=== PATIENT | female | born 1960 | race Caucasian/White ===

== ENCOUNTER 2016-12-06 | Outpatient (CLI) | payer MEDICARE, MEDICAID | END 2016-12-06 10:34 | disposition critical access hospital (66) | DX: R41.82 Altered mental status, unspecified (principal) | CPT/HCPCS: A0425; A0429 ==

== ENCOUNTER 2016-12-06 10:50 | Observation (INO) | payer MEDICAID, MEDICARE ==
[2016-12-06] MEDS ORDERED: AZITHROMYCIN INJ 500 MG in SODIUM CHLORIDE 0.9% 250 ML IV STA (13:30)
[2016-12-06] MEDS ORDERED: POTASSIUM CHLORIDE 20 MEQ TABLET PO STA (13:30)
[2016-12-06] MEDS ORDERED: cefTRIAXone 1 GM in SODIUM CHLORIDE 0.9% MINIBAG 100 ML IV STA (13:30)
[2016-12-06] MEDS ORDERED: POTASSIUM CHLORIDE 20 MEQ TABLET PO ONE (13:37)
[2016-12-06] MEDS ORDERED: cefTRIAXone 1 GM VIAL ONE (13:37)
[2016-12-06] MEDS ORDERED: SODIUM CHLORIDE FLUSH 0.9% 10 ML SYRINGE IVP PRN (14:21)
[2016-12-06] MEDS ORDERED: ONDANSETRON ODT 4 MG TABLET TL PRN (14:21)
[2016-12-06] MEDS ORDERED: ACETAMINOPHEN 325 MG TABLET PO PRN (14:21)
[2016-12-06] MEDS ORDERED: hydrOXYzine PAMOATE 25 MG CAPSULE PO PRN (15:48)
[2016-12-06] MEDS ORDERED: LIDOCAINE OINTMENT 5% 35.44 GM TUBE TOP PRN (15:48)
[2016-12-06] MEDS: LORazepam 2 MG/ML SYRINGE IVP PRN ×2 (16:07→20:07)
[2016-12-06] MEDS ORDERED: PERPHENAZINE 4 MG TABLET PO SCH ×2 (17:00→21:00)
[2016-12-06] MEDS ORDERED: CAPSAICIN 0.025% CREAM 60 GM TUBE TOP PRN (17:00)
[2016-12-06] MEDS ORDERED: diphenhydrAMINE 25 MG CAPSULE PO SCH (21:00)
[2016-12-06] MEDS ORDERED: clonazePAM 0.5 MG TABLET PO SCH ×2 (21:00)
[2016-12-06] MEDS ORDERED: ADDERALL 20 MG PO SCH (21:00)
[2016-12-06] MEDS: GABAPENTIN 300 MG CAPSULE PO SCH (21:20)
[2016-12-06] MEDS: SODIUM CHLORIDE FLUSH 0.9% 10 ML SYRINGE IVP SCH (21:27)
[2016-12-07] MEDS: SODIUM CHLORIDE FLUSH 0.9% 10 ML SYRINGE IVP SCH ×2 (06:51→14:08)
[2016-12-07] MEDS: GABAPENTIN 300 MG CAPSULE PO SCH ×2 (06:51→14:06)
[2016-12-07] MEDS ORDERED: PANTOPRAZOLE 40 MG TABLET PO SCH (07:00)
[2016-12-07] MEDS: PERPHENAZINE 4 MG TABLET PO SCH ×2 (08:25→14:07)
[2016-12-07] MEDS ORDERED: PRENATAL VITAMIN TABLET PO SCH (09:00)
[2016-12-07] MEDS ORDERED: cefTRIAXone 1 GM in SODIUM CHLORIDE 0.9% MINIBAG 100 ML IV SCH (09:00)
[2016-12-07] MEDS ORDERED: ZADITOR OPTH EACHEYE PRN (09:00)
[2016-12-07] MEDS ORDERED: ENOXAPARIN 40 MG/0.4 ML SYRINGE SUBQ SCH (09:00)
[2016-12-07] MEDS ORDERED: CHOLECALCIFEROL 1,000 UNIT TABLET PO SCH (09:00)
[2016-12-07] MEDS ORDERED: AZITHROMYCIN 250 MG TABLET PO SCH (09:00)
[2016-12-07] MEDS ORDERED: ADDERALL 20 MG PO SCH (09:00)
[2016-12-07] MEDS ORDERED: FOLIC ACID 1 MG TABLET PO SCH (09:00)
[2016-12-07] MEDS ORDERED: POLYETHYLENE GLYCOL 3350 17 GM PACKET PO SCH (09:00)
[2016-12-07] MEDS ORDERED: THIAMINE 100 MG TABLET PO SCH (09:00)
[2016-12-07] MEDS ORDERED: POTASSIUM CHLORIDE 20 MEQ TABLET PO SCH (10:00)
[2016-12-07] MEDS: POTASSIUM CHLOR 10 MEQ/100 ML 100 ML IV SCH ×3 (10:23→14:06)
[2016-12-07] MEDS ORDERED: IPRATROPIUM/ALBUTEROL 3 ML NEB INH PRN (15:08)
[2016-12-07] MEDS ORDERED: oxyCODONE 5 MG TABLET PO ONE (16:00)
== END 2016-12-07 17:50 | disposition home or self-care (01) ==
DX: R41.82 Altered mental status, unspecified (principal); T43.96XA Underdosing of unspecified psychotropic drug, initial encounter; Z91.128 Patient's intentional underdosing of medication regimen for other reason; R91.8 Other nonspecific abnormal finding of lung field; E87.6 Hypokalemia; E86.0 Dehydration; F20.9 Schizophrenia, unspecified; F31.9 Bipolar disorder, unspecified; F41.9 Anxiety disorder, unspecified; F10.10 Alcohol abuse, uncomplicated; F17.210 Nicotine dependence, cigarettes, uncomplicated; B19.10 Unspecified viral hepatitis B without hepatic coma; B19.20 Unspecified viral hepatitis C without hepatic coma; Z87.898 Personal history of other specified conditions
CPT/HCPCS: 36415; 70450; 71020; 80053; 80306; 80307; 81003; 82550; 83690; 84132; 84443; 85025; 85610; 96365; 96366; 96367; 96372; 96375; 96376; 99284; 99285; A9270; G0378; G0480; J1650; J2060; Q0175

== ENCOUNTER 2017-05-27 10:48 | Outpatient (CLI) | payer MEDICARE, MEDICAID | END 2017-05-27 10:49 | disposition home or self-care (01) | LOC: LAB 10:48 | PROVIDERS: ATTEND Psychiatry & Neurology Psychiatry | DX: Z79.899 Other long term (current) drug therapy (principal) | CPT/HCPCS: 80306 ==

== ENCOUNTER 2017-07-01 15:20 | Emergency (ER) | payer MEDICARE, MEDICAID ==
[2017-07-01 16:05] LABS: BASOPHILS # (AUTO) 0.2 10^3/uL (0.0-0.1); BASOPHILS % (AUTO) 2.4 %; EOSINOPHILS # (AUTO) 0.2 10^3/uL (0.0-0.7); EOSINOPHILS % (AUTO) 1.7 %; HCT - HEMATOCRIT 45.6 % (37.0-47.0); HGB - HEMOGLOBIN 15.1 g/dL (12.0-16.0); LYMPHOCYTES # (AUTO) 3.1 10^3/uL (1.5-3.5); LYMPHOCYTES % (AUTO) 31.8 %; MEAN CORPUSCULAR HEMOGLOBIN 31.8 pg (27.0-31.0); MEAN CORPUSCULAR VOLUME 96.4 fL (81.0-99.0); MEAN PLATELET VOLUME 7.8 fL (7.9-10.8); MONOCYTES # (AUTO) 0.4 10^3/uL (0.0-1.0); NEUTROPHILS # (AUTO) 5.8 10^3/uL (1.5-6.6); NEUTROPHILS % (AUTO) 60.1 %; NUCLEATED RED BLOOD CELLS AUTO 0.1 /100WBC; RED BLOOD COUNT 4.73 10^6/uL (4.20-5.40); RED CELL DISTRIBUTION WIDTH 14.6 % (12.0-15.0); UNCORRECTED WHITE BLOOD COUNT 9.7 x10^3/uL; WHITE BLOOD COUNT 9.7 x10^3/uL (4.8-10.8)
[2017-07-01 16:22] LABS: ALBUMIN/GLOBULIN RATIO 1.3 (1.0-2.2); BILIRUBIN,TOTAL 0.6 mg/dL (0.2-1.0); BUN - BLOOD UREA NITROGEN 6 mg/dL (6-20); CALCIUM 9.5 mg/dL (8.5-10.3); CARBON DIOXIDE - CO2 26 mmol/L (21-32); CHLORIDE 99 mmol/L (101-111); CREATININE 0.7 mg/dL (0.4-1.0); GFR - MDRD 87 (>89); GLUCOSE 116 mg/dL (70-100); LIPASE 52 U/L (22-51); POTASSIUM 3.9 mmol/L (3.5-5.0); SALICYLATE < 6.0 mg/dL; SODIUM 136 mmol/L (135-145); TOTAL PROTEIN 8.2 g/dL (6.7-8.2)
[2017-07-01 16:23] LABS: ACETAMINOPHEN < 10 ug/mL (10-30)
[2017-07-01] MEDS ORDERED: HYDROmorphone 1 MG/ML SYRINGE IM STA (17:38)
--- NOTE | 2017-07-01 17:39 | ED Physician Documentation ---
PD HPI MHE - Stated complaint Stated Complaint: SI - Chief complaint Chief Complaint: MHE - History obtained from History obtained from: Patient, Family - History of Present Illness Primary symptom: Suicidal ideation, Psychosis, Anxiety Timing - onset: How many weeks ago (1) Pain level max: 0 Pain level now: 0 Contributing factors: Other (cannabis, states started abilify 2 weeks ago and it is not helping) Recently seen: Not recently seen - Additional information Additional information: Patient is a 56-year-old female who presents to the emergency department stating she is having increasing auditory hallucinations at home. States the voices are telling her to kill herself. Her family states that she is frequently locking herself in her home and going underneath the house because she is concerned that people are coming after her. She sees Dr. Gilmore and [facility] and had Abilify added to her medication regimen a few weeks ago, this is not helping. Patient would like to go to an inpatient psychiatric facility for adjustment of her medications and further care. Review of Systems Ten Systems: 10 systems reviewed and negative Constitutional: denies: Fever, Chills Ears: denies: Ear pain Nose: denies: Rhinorrhea / runny nose, Congestion Throat: denies: Sore throat Cardiac: denies: Chest pain / pressure Respiratory: denies: Cough GI: denies: Abdominal Pain, Nausea, Vomiting, Diarrhea Skin: denies: Rash Musculoskeletal: denies: Neck pain, Back pain Neurologic: denies: Headache Psychiatric: reports: Suicidal, Hallucinations, Anxiety, Insomnia. 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 - Present Medications Home Medications: Ambulatory Orders Medication Instructions Recorded Confirmed Hydroxyzine Pamoate 25 - 50 mg ORAL Q4HR PRN 11/05/07/01/17 Albuterol Sulfate [Proventil Hfa 2 puffs IH Q4HR PRN 07/30/15 07/01/17 Inhaler] Gabapentin 900 mg PO TID 07/30/15 07/01/17 clonazePAM [KlonoPIN] 0.5 mg PO QPM 07/30/15 07/01/17 Capsaicin 1 applic TOP QID PRN 04/23/16 07/01/17 Ketotifen Fumarate [Zaditor] 1 drop EACHEYE BID PRN 04/23/16 07/01/17 Dextroamphetamine/Amphetamine 20 mg PO DAILY 12/06/16 07/01/17 [Adderall 20 mg Tablet] Dextroamphetamine/Amphetamine 40 mg PO QPM 12/06/16 07/01/17 [Adderall 20 mg Tablet] Perphenazine 8 mg PO DAILY@0900,1400 12/06/16 07/01/17 Perphenazine 16 mg PO QPM 12/06/16 07/01/17 diphenhydrAMINE [Benadryl] 50 mg PO DAILY PM 12/06/16 07/01/17 clonazePAM [KlonoPIN] 0.5 mg PO QPM tablet 12/07/16 07/01/17 Aripiprazole 10 mg PO DAILY 07/01/17 07/01/17 Oxycodone HCl 2 tab PO Q8HR PRN 07/01/17 07/01/17 - Allergies Allergies/Adverse Reactions: Allergies Allergy/AdvReac Type Severity Reaction Status Date / Time meperidine HCl * Allergy Nausea Verified 07/01/17 15:38 [From Demerol] morphine Allergy Itching Verified 07/01/17 15:38 promethazine HCl * Allergy Hallucinati Verified 07/01/17 15:38 [From Phenergan] ons - Social History Does the pt smoke?: Yes Smoking Status: Current every day smoker Does the pt drink ETOH?: No Does the pt have substance abuse?: No - Immunizations Immunizations are current?: Yes - POLST Patient has POLST: No PD ED PE NORMAL - Vitals Vital signs reviewed: Yes - General General: Alert and oriented X 3, No acute distress, Well developed/nourished - HEENT HEENT: PERRL, Moist mucous membranes - Neck Neck: Supple, no meningeal sign - Cardiac Cardiac: RRR, Strong equal pulses - Respiratory Respiratory: No respiratory distress, Clear bilaterally - Abdomen Abdomen: Soft, Non tender - Back Back: No spinal TTP - Derm Derm: Warm and dry, No rash - Extremities Extremities: No deformity, No tenderness to palpate - Neuro Neuro: Alert and oriented X 3 - Psych Psych: Other (Anxious, pressured speech) Results - Vitals Vitals: Vital Signs - 24 hr 07/01/17 07/01/17 07/01/17 15:34 18:42 22:29 Temperature 36.8 C 37 C Heart Rate 119 H 102 H 93 Respiratory 20 16 16 Rate Blood Pressure 136/81 H 120/85 H 117/71 O2 Saturation 97 94 95 Oxygen O2 Source Room air - Labs Labs: Laboratory Tests 07/01/17 07/01/17 07/01/17 16:00 16:00 18:00 WBC 9.7 RBC 4.73 Hgb 15.1 Hct 45.6 MCV 96.4 MCH 31.8 H MCHC 33.0 RDW 14.6 Plt Count 303 MPV 7.8 L Neut # 5.8 Lymph # 3.1 [place] # 0.4 Eos # 0.2 Baso # 0.2 H Absolute Nucleated RBC 0.01 Nucleated RBCs 0.1 Sodium 136 Potassium 3.9 Chloride 99 L Carbon Dioxide 26 Anion Gap 11.0 BUN 6 Creatinine 0.7 Estimated GFR (MDRD) 87 L Glucose 116 H Calcium 9.5 Total Bilirubin 0.6 AST 19 ALT 12 Alkaline Phosphatase 84 Total Protein 8.2 Albumin 4.6 Globulin 3.6 Albumin/Globulin Ratio 1.3 Lipase 52 H Urine Color YELLOW Urine Clarity CLEAR Urine pH 7.0 Ur Specific [place] 1.010 Urine Protein NEGATIVE Urine Glucose (UA) NEGATIVE Urine Ketones NEGATIVE Urine Occult Blood NEGATIVE Urine Nitrite NEGATIVE Urine Bilirubin NEGATIVE Urine Urobilinogen 0.2 (NORMAL) Ur Leukocyte Esterase NEGATIVE Ur Microscopic Review NOT INDICATED Urine Culture Comments NOT INDICATED Salicylates < 6.0 Urine Opiates Screen NEGATIVE Ur Oxycodone Screen NEGATIVE Urine Methadone Screen NEGATIVE Ur Propoxyphene Screen NEGATIVE Acetaminophen < 10 L Ur Barbiturates Screen NEGATIVE Ur Tricyclics Screen NEGATIVE Ur Phencyclidine Scrn NEGATIVE Ur Amphetamine Screen NEGATIVE U Methamphetamines Scrn NEGATIVE U Benzodiazepines Scrn NEGATIVE Urine Cocaine Screen NEGATIVE U Cannabinoids Screen POSITIVE H Ethyl Alcohol 15.0 PD MEDICAL DECISION MAKING - ED course Complexity details: reviewed results, re-evaluated patient, considered differential, d/w patient, d/w family, d/w pci security consultant ED course: Patient is a 56-year-old female with a history of schizoaffective disorder and bipolar with edwin. Appears to have increasing auditory hallucinations which are telling her to harm herself. Does not feel safe at home. Is voluntary and would like to go to a treatment facility. Tele-psychiatry was consulted as social work is not available, Dr. Seals saw the patient and does recommend voluntary admission to the hospital. Also recommend holding her Adderall as this may be contributing to her agitation and edwin. She is actually quite cooperative in the emergency department, did not require restraints. Feels much better after a dose of pain medication, possible that she is also going through withdrawals from her pain medication as she may have run out early. Regardless of the opiate issue, she is having hallucinations which does appear to be a worsening of her schizoaffective disorder and bipolar. Discuss the case with [facility] in [place] who is reviewing her case to see if they will accept her. Patient was signed out to the [facility] emergency department physician, Dr. Amezquita. This document was made in part using voice recognition software. While efforts are made to proofread this document, sound alike and grammatical errors may occur. Departure - Departure Clinical Impression: Auditory hallucinations, Paranoia Schizoaffective disorder Qualifiers: Schizoaffective disorder type: bipolar Qualified Code(s): F25.0 - Schizoaffective disorder, bipolar type Bipolar affective disorder Qualifiers: Active/Remission status: currently active Current bipolar episode type: mixed Current episode severity: moderate Qualified Code(s): F31.62 - Bipolar disorder , current episode mixed, moderate Condition: Stable
[2017-07-01] MEDS ORDERED: HYDROmorphone 1 MG/ML SYRINGE ONE (17:46)
[2017-07-01 18:10] LABS: BILIRUBIN,URINE NEGATIVE (NEGATIVE)
[2017-07-01 18:12] LABS: UA CHARGE (STRIP ONLY) YES; UR CULTURE IF IND NOT INDICATED
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
[2017-07-01] MEDS ORDERED: SUCRALFATE 1 GM/10 ML UDC PO STA (20:46)
[2017-07-01] MEDS ORDERED: FAMOTIDINE 20 MG TABLET PO STA (20:46)
[2017-07-01] MEDS ORDERED: oxyCODONE 5 MG TABLET PO STA (20:47)
[2017-07-01] MEDS ORDERED: oxyCODONE 5 MG TABLET ONE (20:54)
[2017-07-01] MEDS ORDERED: SUCRALFATE 1 GM/10 ML UDC ONE (20:54)
[2017-07-01] MEDS ORDERED: FAMOTIDINE 20 MG TABLET ONE (20:54)
[2017-07-02] MEDS ORDERED: GABAPENTIN 100 MG CAPSULE PO STA ×2 (09:59→21:21)
[2017-07-02] MEDS ORDERED: GABAPENTIN 300 MG CAPSULE PO STA (10:01)
[2017-07-02] MEDS ORDERED: ARIPiprazole 5 MG TABLET PO STA (10:02)
--- NOTE | 2017-07-02 10:03 | ED Physician Documentation ---
ED Addendum - Addendum Addendum: 07/02/17 10:00 The patient has slept most of the night. She is calm this morning. She is ambulatory to the bathroom. She will be given breakfast. We did give her her morning medications of gabapentin 900 mg and Abilify 10 mg and she was having some general pain and gave a hydrocodone tablet consistent with what was given last night. I held off on her Adderall at the direction of the tele-psych consult note. The psych social worker came and saw the patient and their issues regarding placement voluntarily. Reading the [facility] psych note, which says and confirms the patient is at risk of harm and outpatient treatment is not appropriate, I talked with the psych social worker who felt it most appropriate then to contact the D P for involuntary placement. However after talking with the D MHP, the patient is saying she is willing to take medications and stay in the hospital for appropriate duration of treatment (she had had issues of leaving within a day or 2 on prior admissions) the [facility] then felt the patient should be voluntary and we are back to the psych social worker finding placement.
[2017-07-02] MEDS ORDERED: GABAPENTIN 300 MG CAPSULE ONE ×2 (10:13→21:29)
[2017-07-02] MEDS ORDERED: oxyCODONE 5 MG TABLET PO STA ×2 (12:29→21:21)
[2017-07-02] MEDS ORDERED: oxyCODONE 5 MG TABLET ONE ×2 (12:34→21:28)
[2017-07-02] MEDS ORDERED: OLANZapine 10 MG VIAL IM STA (15:51)
[2017-07-02] MEDS ORDERED: WATER FOR INJECTION,STERILE 10 ML ONE (15:56)
[2017-07-02] MEDS ORDERED: OLANZapine 10 MG VIAL IM ONE (15:57)
[2017-07-02] MEDS ORDERED: PERPHENAZINE 4 MG TABLET PO STA (21:21)
[2017-07-02] MEDS ORDERED: clonazePAM 0.5 MG TABLET PO STA (21:21)
[2017-07-02] MEDS ORDERED: clonazePAM 0.5 MG TABLET PO ONE (21:29)
--- NOTE | 2017-07-03 00:58 | ED Physician Documentation ---
ED Addendum - Addendum Addendum: 07/03/17 00:57 Patient was intermittently agitated in the emergency department throughout the day, she became particularly agitated while the [facility] was here evaluating her. There are no beds available at this time, but the patient is not safe to go home and therefore cannot be medically cleared to care for herself at home. We will continue looking for placement. She is receiving her current psychiatric medications here. After her nighttime medications, she is sleeping comfortably. Will reassess in the morning
[2017-07-03] MEDS ORDERED: ARIPiprazole 5 MG TABLET PO SCH (09:00)
[2017-07-03] MEDS ORDERED: GABAPENTIN 100 MG CAPSULE PO STA (09:45)
[2017-07-03] MEDS ORDERED: oxyCODONE 5 MG TABLET PO STA ×3 (09:45→19:20)
--- NOTE | 2017-07-03 09:48 | ED Physician Documentation ---
ED Addendum - Addendum Addendum: 07/03/17 09:46 Patient reportedly did okay through the night. overnight EDMD did not have any particulars to report. This AM patient is awake and in no distress. Oriented and doing okay. DMHP will be back to see her. Reportedly tried to get her admitted yesterday involuntary, but no beds available. She was felt to still need to be detained, so kept in ED. We will give her her usual AM meds. Given breakfast. Awaiting DMHP return.
[2017-07-03] MEDS ORDERED: ARIPiprazole 5 MG TABLET PO STA (09:49)
[2017-07-03] MEDS ORDERED: GABAPENTIN 300 MG CAPSULE PO STA (09:49)
[2017-07-03] MEDS ORDERED: oxyCODONE 5 MG TABLET ONE ×3 (10:04→19:29)
[2017-07-03] MEDS ORDERED: GABAPENTIN 300 MG CAPSULE ONE (10:04)
[2017-07-03] MEDS ORDERED: NICOTINE 14 MG PATCH TOP STA (11:51)
[2017-07-03] MEDS ORDERED: NICOTINE 14 MG PATCH TOP ONE (11:56)
--- NOTE | 2017-07-03 15:39 | ED Physician Documentation ---
ED Addendum - Addendum Addendum: 07/03/17 15:37 The patient reportedly slept in was cooperative overnight. She had been deemed involuntary ID MHP yesterday but there are no beds available by report. She was kept in the department for concern of still scattered thought process and poor direction following otherwise. She was staying in her room. She was provided her normal morning medications and breakfast. The DM HPV came back to evaluate her this morning and as the patient was more cooperative and following directions and saying she would like help, it was at the time decided she would be considered voluntary. However the patient refused to talk to the social problems specialist and did become slightly verbally abusive. She was able to be calmed with directed talking. She then said that she did not think she needed help. The MHP was consulted again and came back to evaluate the patient and did feel that she was involuntary at this time after now reviewing notes from yesterday. The D P is working on placement for her.
[2017-07-03 16:57] VITALS: BP 109/63
--- NOTE | 2017-07-03 18:54 | ED Physician Documentation ---
ED Addendum - Addendum Addendum: 07/03/17 18:52 DMHP [facility] assessed patient and felt her involuntary, and was able to find accepting facility. Patient will be transferred via EMS to Psych facility in [facility]. No complications during the afternoon here.
[2017-07-03] MEDS ORDERED: MAG HYDROX/AL HYDROX/SIMETH 30 ML UDC PO STA (22:19)
[2017-07-03] MEDS ORDERED: MAG HYDROX/AL HYDROX/SIMETH 30 ML UDC ONE (22:23)
[2017-07-04] MEDS ORDERED: ARIPiprazole 5 MG TABLET PO SCH (09:00)
== END 2017-07-03 22:23 ==
LOC: ED 15:20
DX: R45.851 Suicidal ideations (principal); F25.0 Schizoaffective disorder, bipolar type; G62.9 Polyneuropathy, unspecified
CPT/HCPCS: 36415; 80053; 80306; 80307; 81003; 83690; 85025; 96372; 99285; A9270; G0480; J1170; Q0175; Q3014; 80320; 80329; 81001; 87086; 99284

== ENCOUNTER 2017-07-28 14:04 | Emergency (ER) | payer MEDICARE, MEDICAID ==
[2017-07-28 16:02] LABS: BASOPHILS # (AUTO) 0.1 10^3/uL (0.0-0.1); BASOPHILS % (AUTO) 0.8 %; EOSINOPHILS # (AUTO) 0.3 10^3/uL (0.0-0.7); EOSINOPHILS % (AUTO) 3.5 %; HCT - HEMATOCRIT 41.7 % (37.0-47.0); HGB - HEMOGLOBIN 13.7 g/dL (12.0-16.0); LYMPHOCYTES # (AUTO) 2.5 10^3/uL (1.5-3.5); LYMPHOCYTES % (AUTO) 32.7 %; MEAN CORPUSCULAR HEMOGLOBIN 31.9 pg (27.0-31.0); MEAN CORPUSCULAR HGB CONC 32.8 g/dL (32.0-36.0); MEAN PLATELET VOLUME 7.8 fL (7.9-10.8); MONOCYTES # (AUTO) 0.3 10^3/uL (0.0-1.0); MONOCYTES % (AUTO) 4.2 %; NEUTROPHILS # (AUTO) 4.5 10^3/uL (1.5-6.6); NEUTROPHILS % (AUTO) 58.8 %; RED BLOOD COUNT 4.29 10^6/uL (4.20-5.40); RED CELL DISTRIBUTION WIDTH 14.7 % (12.0-15.0); UNCORRECTED WHITE BLOOD COUNT 7.7 x10^3/uL; WHITE BLOOD COUNT 7.7 x10^3/uL (4.8-10.8)
[2017-07-28 16:27] LABS: ALBUMIN/GLOBULIN RATIO 1.3 (1.0-2.2); BILIRUBIN,TOTAL 0.3 mg/dL (0.2-1.0); BUN - BLOOD UREA NITROGEN 8 mg/dL (6-20); CALCIUM 9.5 mg/dL (8.5-10.3); CARBON DIOXIDE - CO2 29 mmol/L (21-32); CHLORIDE 102 mmol/L (101-111); CREATININE 0.8 mg/dL (0.4-1.0); GFR - MDRD 74 (>89); GLUCOSE 99 mg/dL (70-100); LIPASE 42 U/L (22-51); MAGNESIUM 2.2 mg/dL (1.7-2.8); POTASSIUM 4.3 mmol/L (3.5-5.0); SODIUM 139 mmol/L (135-145); TOTAL PROTEIN 7.5 g/dL (6.7-8.2)
[2017-07-28 17:19] LABS: BILIRUBIN,URINE NEGATIVE (NEGATIVE)
[2017-07-28 17:20] LABS: UA CHARGE (STRIP ONLY) YES; UR CULTURE IF IND NOT INDICATED
[2017-07-28 17:43] LABS: SALICYLATE < 6.0 mg/dL
[2017-07-28 17:47] LABS: ACETAMINOPHEN < 10 ug/mL (10-30)
[2017-07-28] MEDS ORDERED: diazePAM 5 MG TABLET PO STA (19:01)
[2017-07-28] MEDS ORDERED: diazePAM 5 MG TABLET PO ONE (19:20)
--- NOTE | 2017-07-28 19:27 | ED Physician Documentation ---
History of Present Illness - Stated complaint Stated Complaint: MHE - Chief complaint Chief Complaint: MHE - Additonal information Additional information: Patient is a 56-year-old female with a history of schizoaffective disorder. She also has Charcot Fifi tooth of the exremity. She is here with a complaint of feeling jittery, emotional, and suicidal. She does not have a plan or she is tempted anything. She lives with her mother and she was told to go to get medical help and that her mother believes she needs her medications balanced better. This patient get some of her medications from a local psychiatrist Dr. Gilmore. This patient is on several controlled medications and is complaining of headache and asking for pain medications here in emergency department. 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 - Present Medications Home Medications: Ambulatory Orders Medication Instructions Recorded Confirmed Hydroxyzine Pamoate 25 - 50 mg ORAL Q4HR PRN 11/05/14 07/28/17 Albuterol Sulfate [Proventil Hfa 2 puffs IH Q4HR PRN 07/30/15 07/28/17 Inhaler] Gabapentin 900 mg PO TID 07/30/15 07/28/17 Capsaicin 1 applic TOP QID PRN 04/23/16 07/28/17 Dextroamphetamine/Amphetamine 20 mg PO BID 12/06/16 07/28/17 [Adderall 20 mg Tablet] Perphenazine 16 mg PO QPM 12/06/16 07/28/17 clonazePAM [KlonoPIN] 0.5 mg PO QPM tablet 12/07/16 07/28/17 Aripiprazole 10 mg PO DAILY 07/01/17 07/28/17 Oxycodone HCl 2 tab PO Q8HR PRN 07/01/17 07/28/17 Benztropine [Cogentin] 2 mg PO QPM 07/28/17 07/28/17 - Allergies Allergies/Adverse Reactions: Allergies Allergy/AdvReac Type Severity Reaction Status Date / Time meperidine HCl * Allergy Nausea Verified 07/01/17 15:38 [From Demerol] morphine Allergy Itching Verified 07/01/17 15:38 promethazine HCl * Allergy Hallucinati Verified 07/01/17 15:38 [From Phenergan] ons - Social History Does the pt smoke?: Yes Smoking Status: Current every day smoker Does the pt drink ETOH?: No Does the pt have substance abuse?: No - Immunizations Immunizations are current?: Yes - POLST Patient has POLST: No Results - Vitals Vitals: Vital Signs - 24 hr 07/28/17 07/28/17 07/28/17 14:42 18:40 21:51 Temperature 36.4 C L Heart Rate 119 H 104 H 101 H Respiratory 20 16 Rate Blood Pressure 112/80 137/88 H 138/86 H O2 Saturation 99 98 95 Oxygen O2 Source Room air - Labs Labs: Laboratory Tests 07/28/17 07/28/17 07/28/17 15:54 15:54 15:54 WBC 7.7 RBC 4.29 Hgb 13.7 Hct 41.7 MCV 97.0 MCH 31.9 H MCHC 32.8 RDW 14.7 Plt Count 290 MPV 7.8 L Neut # 4.5 Lymph # 2.5 [place] # 0.3 Eos # 0.3 Baso # 0.1 Absolute Nucleated RBC 0.00 Nucleated RBCs 0.0 Sodium 139 Potassium 4.3 Chloride 102 Carbon Dioxide 29 Anion Gap 8.0 BUN 8 Creatinine 0.8 Estimated GFR (MDRD) 74 L Glucose 99 Calcium 9.5 Magnesium 2.2 Total Bilirubin 0.3 AST 18 ALT 12 Alkaline Phosphatase 79 Total Protein 7.5 Albumin 4.3 Globulin 3.2 Albumin/Globulin Ratio 1.3 Lipase 42 TSH 0.84 Urine Color Urine Clarity Urine pH Ur Specific [place] Urine Protein Urine Glucose (UA) Urine Ketones Urine Occult Blood Urine Nitrite Urine Bilirubin Urine Urobilinogen Ur Leukocyte Esterase Ur Microscopic Review Urine Culture Comments Salicylates Urine Opiates Screen Ur Oxycodone Screen Urine Methadone Screen Ur Propoxyphene Screen Acetaminophen Ur Barbiturates Screen Ur Tricyclics Screen Ur Phencyclidine Scrn Ur Amphetamine Screen U Methamphetamines Scrn U Benzodiazepines Scrn Urine Cocaine Screen U Cannabinoids Screen Ethyl Alcohol < 5.0 07/28/17 07/28/17 17:05 17:14 WBC RBC Hgb Hct MCV MCH MCHC RDW Plt Count MPV Neut # Lymph # [place] # Eos # Baso # Absolute Nucleated RBC Nucleated RBCs Sodium Potassium Chloride Carbon Dioxide Anion Gap BUN Creatinine Estimated GFR (MDRD) Glucose Calcium Magnesium Total Bilirubin AST ALT Alkaline Phosphatase Total Protein Albumin Globulin Albumin/Globulin Ratio Lipase TSH Urine Color YELLOW Urine Clarity CLEAR Urine pH 6.0 Ur Specific [place] 1.010 Urine Protein NEGATIVE Urine Glucose (UA) NEGATIVE Urine Ketones NEGATIVE Urine Occult Blood NEGATIVE Urine Nitrite NEGATIVE Urine Bilirubin NEGATIVE Urine Urobilinogen 0.2 (NORMAL) Ur Leukocyte Esterase NEGATIVE Ur Microscopic Review NOT INDICATED Urine Culture Comments NOT INDICATED Salicylates < 6.0 Urine Opiates Screen POSITIVE H Ur Oxycodone Screen NEGATIVE Urine Methadone Screen NEGATIVE Ur Propoxyphene Screen NEGATIVE Acetaminophen < 10 L Ur Barbiturates Screen NEGATIVE Ur Tricyclics Screen NEGATIVE Ur Phencyclidine Scrn NEGATIVE Ur Amphetamine Screen NEGATIVE U Methamphetamines Scrn NEGATIVE U Benzodiazepines Scrn NEGATIVE Urine Cocaine Screen NEGATIVE U Cannabinoids Screen NEGATIVE Ethyl Alcohol PD MEDICAL DECISION MAKING - ED course Complexity details: reviewed old records, reviewed results, re-evaluated patient , considered differential ED course: Patient is a middle-aged woman with history of schizoaffective disorder on multiple medications. She was just hospitalized for suicidality, acute out of hospital went home and in was told by family members that she is unfit to needs her medications adjusted. The patient says that she still feels suicidal she is complaining of a headache and right leg pain. She otherwise look looks well on examination but is very agitated. We did do routine blood work around her and it is unremarkable. She is given 5 mg of Valium which calmed her down a little bit and she is given her nighttime psychiatric medications. I was reticent to give her lots of her normal medications because I am not sure that these are good for and if she truly needs her medications reviewed been I am concerned about her constant use of opiates, benzodiazepines and amphetamines. She has been given her nighttime dose of antipsychotic in the form of Haldol because we do not carry Trilafon here. At this point in time she is medically cleared for psychiatry and is sleeping quietly. Disposition pending psychiatric evaluation in the morning by social work and MHP. Clinical impression: 1. Schizoaffective disorder 2. Alleged suicidality 3. Suspect polypharmacy
[2017-07-28] MEDS ORDERED: GABAPENTIN 100 MG CAPSULE PO STA (20:19)
[2017-07-28] MEDS ORDERED: NICOTINE 21 MG PATCH TOP STA (20:19)
[2017-07-28] MEDS ORDERED: NICOTINE 21 MG PATCH TOP ONE (20:33)
[2017-07-28] MEDS ORDERED: GABAPENTIN 300 MG CAPSULE ONE (20:33)
[2017-07-28] MEDS ORDERED: HALOPERIDOL 5 MG/ML VIAL IM STA (20:37)
[2017-07-28] MEDS ORDERED: BENZTROPINE 2 MG TABLET PO SCH (21:00)
[2017-07-28] MEDS ORDERED: BENZTROPINE 2 MG/2 ML AMP IM STA (21:10)
[2017-07-28] MEDS: PERPHENAZINE 4 MG TABLET PO SCH (21:12)
[2017-07-28] MEDS ORDERED: HALOPERIDOL 5 MG/ML VIAL ONE (21:43)
[2017-07-28] MEDS ORDERED: BENZTROPINE 2 MG/2 ML VIAL ONE (21:43)
--- NOTE | 2017-07-28 22:12 | XRAY Preliminary Report ---
Exam: XR Ankle 3 View RT IMPRESSION: Chronic postoperative and posttraumatic changes in the distal right tibia and fibula. No acute fracture or malalignment seen. RADIA SITE ID: [id number]
--- NOTE | 2017-07-28 22:32 | XRAY Report ---
EXAM: RIGHT ANKLE RADIOGRAPHY EXAM DATE: 07/28/2017 09:36 PM. CLINICAL HISTORY: Pain and swelling right ankle, fall. COMPARISON: 08/13/2016. TECHNIQUE: 3 views. FINDINGS: Bones: Chronic postoperative and posttraumatic changes in the distal right tibia and fibula. No acute fracture or malalignment seen. Joints: No malalignment. Mild degenerative changes about the ankle. Soft Tissues: Normal. No soft tissue swelling. IMPRESSION: Chronic postoperative and posttraumatic changes in the distal right tibia and fibula. No acute fracture or malalignment seen. [facility] Referring Provider Line: [phone] SITE ID: [id number]
[2017-07-29] MEDS: PERPHENAZINE 4 MG TABLET PO SCH ×2 (08:19→15:31)
[2017-07-29] MEDS ORDERED: oxyCODONE 5 MG TABLET PO STA (08:30)
[2017-07-29] MEDS ORDERED: GABAPENTIN 100 MG CAPSULE PO STA (08:31)
[2017-07-29] MEDS ORDERED: GABAPENTIN 300 MG CAPSULE ONE (08:49)
[2017-07-29] MEDS ORDERED: oxyCODONE 5 MG TABLET ONE (08:49)
[2017-07-29] MEDS ORDERED: ARIPiprazole 5 MG TABLET PO SCH (09:00)
--- NOTE | 2017-07-29 12:32 | ED Physician Documentation ---
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: Tubal ligation - Present Medications Home Medications: Ambulatory Orders Medication Instructions Recorded Confirmed Hydroxyzine Pamoate 25 - 50 mg ORAL Q4HR PRN 11/05/14 07/28/17 Albuterol Sulfate [Proventil Hfa 2 puffs IH Q4HR PRN 07/30/15 07/28/17 Inhaler] Gabapentin 900 mg PO TID 07/30/15 07/28/17 Capsaicin 1 applic TOP QID PRN 04/23/16 07/28/17 Dextroamphetamine/Amphetamine 20 mg PO BID 12/06/16 07/28/17 [Adderall 20 mg Tablet] Perphenazine 16 mg PO QPM 12/06/16 07/28/17 clonazePAM [KlonoPIN] 0.5 mg PO QPM tablet 12/07/16 07/28/17 Aripiprazole 10 mg PO DAILY 07/01/17 07/28/17 Oxycodone HCl 2 tab PO Q8HR PRN 07/01/17 07/28/17 Benztropine [Cogentin] 2 mg PO QPM 07/28/17 07/28/17 - Allergies Allergies/Adverse Reactions: Allergies Allergy/AdvReac Type Severity Reaction Status Date / Time meperidine HCl * Allergy Nausea Verified 07/01/17 15:38 [From Demerol] morphine Allergy Itching Verified 07/01/17 15:38 promethazine HCl * Allergy Hallucinati Verified 07/01/17 15:38 [From Phenergan] ons - Social History Does the pt smoke?: Yes Smoking Status: Current every day smoker Does the pt drink ETOH?: No Does the pt have substance abuse?: No - Immunizations Immunizations are current?: Yes - POLST Patient has POLST: No Results - Vitals Vitals: Oxygen O2 Source Room air - Labs Labs: Laboratory Tests 07/28/17 07/28/17 07/28/17 15:54 15:54 15:54 WBC 7.7 RBC 4.29 Hgb 13.7 Hct 41.7 MCV 97.0 MCH 31.9 H MCHC 32.8 RDW 14.7 Plt Count 290 MPV 7.8 L Neut # 4.5 Lymph # 2.5 [place] # 0.3 Eos # 0.3 Baso # 0.1 Absolute Nucleated RBC 0.00 Nucleated RBCs 0.0 Sodium 139 Potassium 4.3 Chloride 102 Carbon Dioxide 29 Anion Gap 8.0 BUN 8 Creatinine 0.8 Estimated GFR (MDRD) 74 L Glucose 99 Calcium 9.5 Magnesium 2.2 Total Bilirubin 0.3 AST 18 ALT 12 Alkaline Phosphatase 79 Total Protein 7.5 Albumin 4.3 Globulin 3.2 Albumin/Globulin Ratio 1.3 Lipase 42 TSH 0.84 Urine Color Urine Clarity Urine pH Ur Specific [place] Urine Protein Urine Glucose (UA) Urine Ketones Urine Occult Blood Urine Nitrite Urine Bilirubin Urine Urobilinogen Ur Leukocyte Esterase Ur Microscopic Review Urine Culture Comments Salicylates Urine Opiates Screen Ur Oxycodone Screen Urine Methadone Screen Ur Propoxyphene Screen Acetaminophen Ur Barbiturates Screen Ur Tricyclics Screen Ur Phencyclidine Scrn Ur Amphetamine Screen U Methamphetamines Scrn U Benzodiazepines Scrn Urine Cocaine Screen U Cannabinoids Screen Ethyl Alcohol < 5.0 07/28/17 07/28/17 17:05 17:14 WBC RBC Hgb Hct MCV MCH MCHC RDW Plt Count MPV Neut # Lymph # [place] # Eos # Baso # Absolute Nucleated RBC Nucleated RBCs Sodium Potassium Chloride Carbon Dioxide Anion Gap BUN Creatinine Estimated GFR (MDRD) Glucose Calcium Magnesium Total Bilirubin AST ALT Alkaline Phosphatase Total Protein Albumin Globulin Albumin/Globulin Ratio Lipase TSH Urine Color YELLOW Urine Clarity CLEAR Urine pH 6.0 Ur Specific [place] 1.010 Urine Protein NEGATIVE Urine Glucose (UA) NEGATIVE Urine Ketones NEGATIVE Urine Occult Blood NEGATIVE Urine Nitrite NEGATIVE Urine Bilirubin NEGATIVE Urine Urobilinogen 0.2 (NORMAL) Ur Leukocyte Esterase NEGATIVE Ur Microscopic Review NOT INDICATED Urine Culture Comments NOT INDICATED Salicylates < 6.0 Urine Opiates Screen POSITIVE H Ur Oxycodone Screen NEGATIVE Urine Methadone Screen NEGATIVE Ur Propoxyphene Screen NEGATIVE Acetaminophen < 10 L Ur Barbiturates Screen NEGATIVE Ur Tricyclics Screen NEGATIVE Ur Phencyclidine Scrn NEGATIVE Ur Amphetamine Screen NEGATIVE U Methamphetamines Scrn NEGATIVE U Benzodiazepines Scrn NEGATIVE Urine Cocaine Screen NEGATIVE U Cannabinoids Screen NEGATIVE Ethyl Alcohol PD MEDICAL DECISION MAKING - ED course Complexity details: re-evaluated patient, d/w patient ED course: The patient's care was turned over to me at change of shift pending transport by BLS ambulance to psychiatric care facility. She remained cooperative throughout the remaining time in the emergency department, although she repeatedly requested more pain medication. She routinely takes oxycodone and gabapentin. Treatment in the emergency department included oxycodone 5 mg orally, gabapentin 300 mg orally, and ibuprofen 800 mg orally. She was also given her normal daily dose of Abilify. She was subsequently transported by BLS ambulance to [facility]. COBRA form completed. Departure - Departure Disposition: 65 Psych Hosp/Unit DC/Xfer Clinical Impression: Schizoaffective disorder, depressive type, Polysubstance abuse Condition: Stable Discharge Date/Time: 07/29/17 16:50
[2017-07-29] MEDS ORDERED: IBUPROFEN 800 MG TABLET PO STA (15:10)
[2017-07-29] MEDS ORDERED: PERPHENAZINE 4 MG TABLET PO ONE (15:32)
[2017-07-29] MEDS ORDERED: IBUPROFEN 800 MG TABLET PO ONE (15:33)
[2017-07-29 16:39] VITALS: BP 123/75
== END 2017-07-29 16:50 ==
LOC: ED 14:04
DX: F25.1 Schizoaffective disorder, depressive type (principal); R45.851 Suicidal ideations; R51 Headache; F11.10 Opioid abuse, uncomplicated; F13.10 Sedative, hypnotic or anxiolytic abuse, uncomplicated; F15.10 Other stimulant abuse, uncomplicated; M79.604 Pain in right leg; G60.0 Hereditary motor and sensory neuropathy; I73.9 Peripheral vascular disease, unspecified; F17.200 Nicotine dependence, unspecified, uncomplicated
CPT/HCPCS: 36415; 73610; 80053; 80306; 80307; 81003; 83690; 83735; 84443; 85025; 96372; 99284; A9270; G0480; J0515; Q0175; 80320; 80329; 81001; 87086

== ENCOUNTER 2017-09-13 13:40 | Emergency (ER) | payer MEDICARE, MEDICAID ==
[2017-09-13] MEDS ORDERED: OLANZapine 10 MG VIAL IM STA (14:17)
[2017-09-13] MEDS ORDERED: KETOROLAC 60 MG/2 ML VIAL IM STA (14:17)
--- NOTE | 2017-09-13 14:24 | ED Physician Documentation ---
PD HPI MHE - Stated complaint Stated Complaint: MHE - Chief complaint Chief Complaint: MHE - History obtained from History obtained from: Patient, EMS - History of Present Illness Primary symptom: Other (56-year-old woman with schizoaffective disorder presents by ambulance. Per her, her main complaints are that she is out of her medications and she has been unable to get a hold of [facility] to refill them. Per EMS and nursing report she has been delusional, worried about stalkers. She took her sister's gun without specific plan.) Review of Systems Ten Systems: 10 systems reviewed and negative Constitutional: denies: Fever, Chills GI: denies: Abdominal Pain, Nausea, Vomiting Musculoskeletal: reports: Other (Chronic right leg pain from prior energy injury for which she requests a shot of Dilaudid) Psychiatric: denies: Suicidal, Homicidal PD PAST MEDICAL HISTORY - Past Medical History Cardiovascular: Peripheral Vascular Disease, Atrial fibrillation Respiratory: Asthma, COPD Neuro: Peripheral neuropathy, Tremors, Other Endocrine/Autoimmune: None GI: Chronic diarrhea : None HEENT: Chronic hearing loss Psych: Depression, Anxiety, Bipolar disorder, Schizophrenia, Panic attacks Musculoskeletal: Osteoarthritis, Fibromyalgia Derm: Other - Past Surgical History Past Surgical History: Yes Ortho: Arthroscopic surgery /PCA: Tubal ligation - Present Medications Home Medications: Ambulatory Orders Medication Instructions Recorded Confirmed Hydroxyzine Pamoate 25 - 50 mg ORAL Q4HR PRN 11/05/07/28/17 Albuterol Sulfate [Proventil Hfa 2 puffs IH Q4HR PRN 07/30/15 07/28/17 Inhaler] Gabapentin 900 mg PO TID 07/30/15 07/28/17 Capsaicin 1 applic TOP QID PRN 04/23/16 07/28/17 Dextroamphetamine/Amphetamine 20 mg PO BID 12/06/16 07/28/17 [Adderall 20 mg Tablet] Perphenazine 16 mg PO QPM 12/06/16 07/28/17 clonazePAM [KlonoPIN] 0.5 mg PO QPM tablet 12/07/16 07/28/17 Aripiprazole 10 mg PO DAILY 07/01/17 07/28/17 Oxycodone HCl 2 tab PO Q8HR PRN 07/01/17 07/28/17 Benztropine [Cogentin] 2 mg PO QPM 07/28/17 07/28/17 - Allergies Allergies/Adverse Reactions: Allergies Allergy/AdvReac Type Severity Reaction Status Date / Time meperidine HCl * Allergy Nausea Verified 09/13/17 13:55 [From Demerol] morphine Allergy Itching Verified 09/13/17 13:55 promethazine HCl * Allergy Hallucinati Verified 09/13/17 13:55 [From Phenergan] ons - Social History Does the pt smoke?: Yes Smoking Status: Current every day smoker Does the pt drink ETOH?: Yes Does the pt have substance abuse?: No - Family History Family history: reports: Non contributory - Immunizations Immunizations are current?: Yes - POLST Patient has POLST: No PD ED PE NORMAL - Vitals Vital signs reviewed: Yes - General General: Alert and oriented X 3, Other (Slightly agitated but cooperative and redirectable) - HEENT HEENT: PERRL, EOMI - Neck Neck: Supple, no meningeal sign, No bony TTP - Cardiac Cardiac: RRR, No murmur - Respiratory Respiratory: No respiratory distress, Clear bilaterally - Abdomen Abdomen: Normal bowel sounds, Soft, Non tender - Extremities Extremities: Other (Right leg with full range of motion, slight deformity to the right ankle from prior Charcot joints.) - Neuro Neuro: Alert and oriented X 3, Normal speech Results - Vitals Vitals: Vital Signs - 24 hr 09/13/17 09/13/17 09/13/17 13:44 18:46 20:12 Temperature 36.9 C 36.9 C Heart Rate 112 H 91 97 Respiratory 15 20 20 Rate Blood Pressure 127/80 131/87 H 121/83 H O2 Saturation 96 98 96 Oxygen O2 Source Room air - Labs Labs: Laboratory Tests 09/13/17 09/13/17 09/13/17 17:22 17:22 18:38 WBC 9.1 RBC 4.22 Hgb 13.5 Hct 41.3 MCV 98.0 MCH 31.9 H MCHC 32.6 RDW 14.7 Plt Count 260 MPV 7.6 L Neut # 5.8 Lymph # 2.4 [place] # 0.6 Eos # 0.2 Baso # 0.1 Absolute Nucleated RBC 0.01 Nucleated RBC % 0.1 Sodium 129 L Potassium 3.7 Chloride 93 L Carbon Dioxide 27 Anion Gap 9.0 BUN 11 Creatinine 0.8 Estimated GFR (MDRD) 74 L Glucose 124 H Calcium 9.4 Total Bilirubin 0.6 AST 21 ALT 15 Alkaline Phosphatase 86 Total Protein 8.0 Albumin 4.7 Globulin 3.3 Albumin/Globulin Ratio 1.4 Lipase 35 Urine Color YELLOW Urine Clarity CLEAR Urine pH 6.0 Ur Specific [place] <=1.005 Urine Protein NEGATIVE Urine Glucose (UA) NEGATIVE Urine Ketones NEGATIVE Urine Occult Blood NEGATIVE Urine Nitrite NEGATIVE Urine Bilirubin NEGATIVE Urine Urobilinogen 0.2 (NORMAL) Ur Leukocyte Esterase NEGATIVE Ur Microscopic Review NOT INDICATED Urine Culture Comments NOT INDICATED Urine Opiates Screen NEGATIVE Ur Oxycodone Screen POSITIVE H Urine Methadone Screen NEGATIVE Ur Propoxyphene Screen NEGATIVE Ur Barbiturates Screen NEGATIVE Ur Tricyclics Screen NEGATIVE Ur Phencyclidine Scrn NEGATIVE Ur Amphetamine Screen NEGATIVE U Methamphetamines Scrn NEGATIVE U Benzodiazepines Scrn NEGATIVE Urine Cocaine Screen NEGATIVE U Cannabinoids Screen NEGATIVE Ethyl Alcohol < 5.0 PD MEDICAL DECISION MAKING - ED course ED course: 56-year-old woman who is out of her medications and presents with psychosis although is cooperative and redirectable here. Per my discussion with the director social service, she is on a least restrictive order and as such the P will need to be called since she ended up in the emergency department. Initially the patient refused blood work and urinalysis, but I think she was talked into it by me. It did take a while to get this lab work done [facility]. She was seen and evaluated by the CDP who felt that she was at her baseline and recommended discharge without any additional medications to follow-up for intensive outpatient treatment tomorrow with [facility]. However, after further discussion with the MHP the patient wanted to seek hospitalization and the P is looking for a bed. Departure - Departure Disposition: 02 Transfer Acute Care Hosp Clinical Impression: Schizoaffective disorder Qualifiers: Schizoaffective disorder type: unspecified Qualified Code(s): F25.9 - Schizoaffective disorder, unspecified Condition: Stable Record reviewed to determine appropriate education?: Yes Instructions: ED Schizo Affective Disorder Comments: Follow-up with [facility] tomorrow as recommended by the mental health professional for further medication management. Your blood pressure was elevated today on check into the emergency department. This does not mean that you have hypertension, it is a common phenomenon to come to the emergency department and have elevated blood pressure. I recommend that you see your primary care physician within the week to have it rechecked when you are feeling better.
[2017-09-13] MEDS ORDERED: KETOROLAC 30 MG/ML VIAL ONE (14:29)
[2017-09-13] MEDS ORDERED: OLANZapine 10 MG VIAL IM ONE (14:30)
[2017-09-13] MEDS ORDERED: SODIUM CHLORIDE 0.9% 10 ML ONE (14:33)
[2017-09-13] MEDS ORDERED: oxyCODONE ER 10 MG TABLET PO STA (15:50)
[2017-09-13] MEDS ORDERED: oxyCODONE 5 MG TABLET PO STA (15:51)
[2017-09-13] MEDS ORDERED: oxyCODONE 5 MG TABLET ONE (16:08)
[2017-09-13] MEDS ORDERED: oxyCODONE ER 10 MG TABLET PO ONE (16:25)
[2017-09-13 17:36] LABS: BASOPHILS # (AUTO) 0.1 10^3/uL (0.0-0.1); BASOPHILS % (AUTO) 1.4 %; EOSINOPHILS # (AUTO) 0.2 10^3/uL (0.0-0.7); EOSINOPHILS % (AUTO) 1.7 %; HCT - HEMATOCRIT 41.3 % (37.0-47.0); HGB - HEMOGLOBIN 13.5 g/dL (12.0-16.0); LYMPHOCYTES # (AUTO) 2.4 10^3/uL (1.5-3.5); LYMPHOCYTES % (AUTO) 26.9 %; MEAN CORPUSCULAR HEMOGLOBIN 31.9 pg (27.0-31.0); MEAN CORPUSCULAR HGB CONC 32.6 g/dL (32.0-36.0); MEAN PLATELET VOLUME 7.6 fL (7.9-10.8); MONOCYTES # (AUTO) 0.6 10^3/uL (0.0-1.0); MONOCYTES % (AUTO) 6.3 %; NEUTROPHILS # (AUTO) 5.8 10^3/uL (1.5-6.6); NEUTROPHILS % (AUTO) 63.7 %; NUCLEATED RED BLOOD CELLS AUTO 0.1 /100WBC; RED BLOOD COUNT 4.22 10^6/uL (4.20-5.40); RED CELL DISTRIBUTION WIDTH 14.7 % (12.0-15.0); UNCORRECTED WHITE BLOOD COUNT 9.1 x10^3/uL; WHITE BLOOD COUNT 9.1 x10^3/uL (4.8-10.8)
[2017-09-13 17:40] LABS: ALBUMIN/GLOBULIN RATIO 1.4 (1.0-2.2); BILIRUBIN,TOTAL 0.6 mg/dL (0.2-1.0); BUN - BLOOD UREA NITROGEN 11 mg/dL (6-20); CALCIUM 9.4 mg/dL (8.5-10.3); CARBON DIOXIDE - CO2 27 mmol/L (21-32); CHLORIDE 93 mmol/L (101-111); CREATININE 0.8 mg/dL (0.4-1.0); GFR - MDRD 74 (>89); GLUCOSE 124 mg/dL (70-100); LIPASE 35 U/L (22-51); POTASSIUM 3.7 mmol/L (3.5-5.0); SODIUM 129 mmol/L (135-145)
[2017-09-13 18:53] LABS: BILIRUBIN,URINE NEGATIVE (NEGATIVE)
[2017-09-13 19:00] LABS: UA CHARGE (STRIP ONLY) YES; UR CULTURE IF IND NOT INDICATED
[2017-09-13] MEDS ORDERED: clonazePAM 0.5 MG TABLET PO STA (22:15)
[2017-09-13] MEDS ORDERED: clonazePAM 0.5 MG TABLET PO ONE (22:25)
[2017-09-14] MEDS ORDERED: LORazepam 2 MG/ML SYRINGE IM STA (00:58)
[2017-09-14] MEDS ORDERED: LORazepam 2 MG/ML SYRINGE ONE (01:07)
[2017-09-14] MEDS ORDERED: oxyCODONE ER 10 MG TABLET PO SCH ×2 (06:00→21:00)
[2017-09-14] MEDS ORDERED: oxyCODONE ER 10 MG TABLET PO ONE (06:07)
[2017-09-14 06:22] VITALS: BP 133/88
== END 2017-09-14 08:19 | disposition short-term general hospital (02) ==
LOC: EDUNIT# → ED 13:40
DX: F25.9 Schizoaffective disorder, unspecified (principal); R03.0 Elevated blood-pressure reading, without diagnosis of hypertension; I73.9 Peripheral vascular disease, unspecified; F17.200 Nicotine dependence, unspecified, uncomplicated
CPT/HCPCS: 36415; 80053; 80306; 81003; 83690; 85025; 96372; 99285; A9270; G0480; J2060; 80320; 81001; 87086; 99284

== ENCOUNTER 2017-09-14 08:21 | Outpatient (CLI) | payer MEDICARE, MEDICAID | END 2017-09-14 08:22 | LOC: EMS 08:21 | PROVIDERS: ATTEND Surgery | DX: R44.3 Hallucinations, unspecified (principal) | CPT/HCPCS: A0425; A0428 ==

== ENCOUNTER 2018-02-27 11:49 | Outpatient (CLI) | payer MEDICARE, MEDICAID ==
[2018-02-27 12:23] LABS: MUDS CUTOFF CONCENTRATIONS CUTOFF CONC BELOW:
[2018-02-27 12:42] LABS: AMPHETAMINE SCREEN,URINE POSITIVE (NEGATIVE)
[2018-02-27 12:43] LABS: BENZODIAZEPINES SCREEN, URINE NEGATIVE (NEGATIVE); COCAINE SCREEN URINE NEGATIVE (NEGATIVE); METHADONE SCREEN, URINE NEGATIVE (NEGATIVE); METHAMPHETAMINES SCREEN, URINE NEGATIVE (NEGATIVE); OPIATE SCREEN, URINE NEGATIVE (NEGATIVE); OXYCODONE SCREEN, URINE NEGATIVE (NEGATIVE); PROPOXYPHENE SCREEN, URINE NEGATIVE (NEGATIVE); TRICYCLIC ANTIDEPRESSANT,URINE NEGATIVE (NEGATIVE)
== END 2018-02-27 11:50 | disposition home or self-care (01) ==
LOC: LAB 11:49
PROVIDERS: ATTEND Psychiatry & Neurology Psychiatry
DX: Z79.899 Other long term (current) drug therapy (principal)
CPT/HCPCS: 80306

== ENCOUNTER 2018-12-11 13:04 | Outpatient (CLI) | payer MEDICARE, MEDICAID | END 2018-12-11 23:59 | disposition home or self-care (01) | LOC: RT.N 13:04 | PROVIDERS: ATTEND Nurse Practitioner Gerontology | DX: Z79.899 Other long term (current) drug therapy (principal) | CPT/HCPCS: 93005 ==

== ENCOUNTER 2019-01-26 14:52 | Outpatient (CLI) | payer MEDICARE, MEDICAID ==
--- NOTE | 2019-01-27 17:37 | CT Report ---
Reason: PERSONAL HISTORY OF NICOTINE DEPENDENCE Procedure Date: 01/26/2019 Accession Number: [id number] / [id number] Procedure: CT - Low Dose Lung Cancer Screen CPT Code: FULL RESULT: EXAM CT LUNG SCREEN EXAM DATE: 01/26/2019 03:09 PM. HISTORY: 58-year-old patient with [id number] smoking history. Currently smoking: Yes. COMPARISON: None. TECHNIQUE: CT examination of the entire thorax without contrast was performed using low-dose technique. Thin section coronal, axial, sagittal and MIP axial images were obtained. In accordance with CT protocol optimization, one or more of the following dose reduction techniques were utilized for this exam: automated exposure control, adjustment of mA and/or KV based on patient size, or use of iterative reconstructive technique. FINDINGS: Nodules: Right upper lobe: 2 mm nodule image 60 series 4. 2 mm nodule image 64. 3 mm nodule image 96. Right middle lobe: None. Right lower lobe: 3 mm nodule image 109. 3 mm nodule image 80. 3 mm nodule image 110. 3 mm nodule image 116. Left upper lobe: 2 mm nodule image 88. 3 mm nodule image 25. Left lower lobe: 3 mm nodule image 120. 3 mm nodule image 107. Emphysema: Mild apical. Pleura: Unremarkable. Aorta: Mildly calcified. Mediastinum: Unremarkable. Coronary calcifications: None. Other pulmonary findings: None. Other extrapulmonary findings: Breast augmentation. IMPRESSION: Lung-RADS ASSESSMENT CATEGORY: 2 - benign appearance. Probability of malignancy: Less than 1%. RECOMMENDATION: Continue annual low-dose chest CT screening as per lung RADS guidelines. [facility]
== END 2019-01-26 14:53 | disposition home or self-care (01) ==
LOC: DI 14:52
PROVIDERS: ATTEND Nurse Practitioner Gerontology
DX: Z12.2 Encounter for screening for malignant neoplasm of respiratory organs (principal); J43.9 Emphysema, unspecified; F17.210 Nicotine dependence, cigarettes, uncomplicated

== ENCOUNTER 2019-05-31 15:18 | Outpatient (CLI) | payer OTHER ==
--- NOTE | 2019-06-04 11:39 | Mammography Report ---
Reason: ANNUAL SCREENING Procedure Date: 05/31/2019 Accession Number: [id number] / [id number] Procedure: WM - Screening Mammo Impl w/Kike CPT Code: FULL RESULT: EXAM: Screening Mammo Impl w/Kike DATE: 05/31/2019 4:15 PM CLINICAL HISTORY: Screening encounter. No reported risk factors. TECHNIQUE: (B) - Bilateral CC and MLO views were obtained. All views obtained in implant displaced and standard fashion. COMPARISON: 10/30/2013. PARENCHYMAL PATTERN: (A) - The breast(s) demonstrate(s) scattered fibroglandular densities. FINDINGS: There are coarse typically benign calcifications. Bilateral prepectoral breast implants are noted. There are no suspicious masses, calcifications, or areas of distortion. IMPRESSION: Benign findings. BI-RADS category 2. RECOMMENDATION: (ANNUAL) - Recommend routine annual screening mammography. BI-RADS CATEGORY: (2) - Benign Findings. STANDARD QUALIFYING STATEMENTS: 1. This examination was not reviewed with the aid of Computer-Aided Detection (CAD). 2. A negative or benign imaging report should not preclude biopsy if clinically suspicious findings are present. 3. Dense breasts may obscure an underlying neoplasm. 4. This examination was reviewed with the aid of 3D breast imaging (tomosynthesis).
== END 2019-05-31 15:19 | disposition home or self-care (01) ==
LOC: DI 15:18
PROVIDERS: ATTEND Nurse Practitioner Acute Care
DX: Z12.31 Encounter for screening mammogram for malignant neoplasm of breast (principal)
CPT/HCPCS: 77063; 77067

== ENCOUNTER 2019-07-25 11:07 | Outpatient (CLI) | payer MEDICARE | END 2019-07-25 11:08 | disposition home or self-care (01) | LOC: DI 11:07 | PROVIDERS: ATTEND Internal Medicine Cardiovascular Disease | DX: I48.0 Paroxysmal atrial fibrillation (principal) | CPT/HCPCS: 93306 ==

== ENCOUNTER 2019-09-27 14:16 | Outpatient (CLI) | payer OTHER | END 2019-09-27 14:17 | disposition critical access hospital (66) | LOC: EMS 14:16 | PROVIDERS: ATTEND Surgery | DX: R41.82 Altered mental status, unspecified (principal); R46.89 Other symptoms and signs involving appearance and behavior | CPT/HCPCS: A0425; A0429 ==

== ENCOUNTER 2019-09-27 14:36 | Emergency (ER) | payer OTHER ==
[2019-09-27 15:00] LABS: MUDS CUTOFF CONCENTRATIONS CUTOFF CONC BELOW:
[2019-09-27 15:06] LABS: BILIRUBIN,URINE NEGATIVE (NEGATIVE); GLUCOSE, URINE (UA) NEGATIVE (NEGATIVE); KETONES,URINE (UA) NEGATIVE (NEGATIVE); LEUKOCYTE ESTERASE, URINE NEGATIVE (NEGATIVE); NITRITE,URINE NEGATIVE (NEGATIVE); OCCULT BLOOD,URINE NEGATIVE (NEGATIVE); PROTEIN,URINE NEGATIVE (NEGATIVE); UROBILINOGEN,URINE 0.2 (NORMAL) E.U./dL (NORMAL)
[2019-09-27 15:10] LABS: BASOPHILS # (AUTO) 0.1 10^3/uL (0.0-0.1); BASOPHILS % (AUTO) 0.7 %; EOSINOPHILS # (AUTO) 0.1 10^3/uL (0.0-0.7); EOSINOPHILS % (AUTO) 0.6 %; HGB - HEMOGLOBIN 12.1 g/dL (12.0-16.0); LYMPHOCYTES # (AUTO) 1.5 10^3/uL (1.5-3.5); LYMPHOCYTES % (AUTO) 14.7 %; MEAN CORPUSCULAR HGB CONC 32.2 g/dL (32.0-36.0); MEAN CORPUSCULAR VOLUME 99.5 fL (81.0-99.0); MEAN PLATELET VOLUME 8.8 fL (7.9-10.8); MONOCYTES # (AUTO) 0.6 10^3/uL (0.0-1.0); MONOCYTES % (AUTO) 5.6 %; NEUTROPHILS # (AUTO) 7.9 10^3/uL (1.5-6.6); NEUTROPHILS % (AUTO) 77.9 %; PLT - PLATELET COUNT 487 10^3/uL (130-450); RED BLOOD COUNT 3.78 10^6/uL (4.20-5.40); RED CELL DISTRIBUTION WIDTH 13.1 % (12.0-15.0); WHITE BLOOD COUNT 10.1 x10^3/uL (4.8-10.8)
[2019-09-27 15:14] LABS: CLARITY,URINE CLEAR (CLEAR)
[2019-09-27 15:19] LABS: AMPHETAMINE SCREEN,URINE NEGATIVE (NEGATIVE); BENZODIAZEPINES SCREEN, URINE NEGATIVE (NEGATIVE); COCAINE SCREEN URINE NEGATIVE (NEGATIVE); METHADONE SCREEN, URINE NEGATIVE (NEGATIVE); METHAMPHETAMINES SCREEN, URINE NEGATIVE (NEGATIVE); OPIATE SCREEN, URINE NEGATIVE (NEGATIVE); OXYCODONE SCREEN, URINE NEGATIVE (NEGATIVE); PROPOXYPHENE SCREEN, URINE NEGATIVE (NEGATIVE); TRICYCLIC ANTIDEPRESSANT,URINE NEGATIVE (NEGATIVE)
[2019-09-27 15:26] LABS: ACETAMINOPHEN < 10 ug/mL (10-30); ALBUMIN 3.7 g/dL (3.2-5.5); ALBUMIN/GLOBULIN RATIO 0.9 (1.0-2.2); ALKALINE PHOSPHATASE 79 IU/L (42-121); ALT ALANINE AMINOTRANSFERASE 13 IU/L (10-60); AST ASPARTATE AMINOTRANSFERASE 19 IU/L (10-42); BILIRUBIN,TOTAL 0.5 mg/dL (0.2-1.0); BUN - BLOOD UREA NITROGEN 5 mg/dL (6-20); CALCIUM 9.2 mg/dL (8.5-10.3); CARBON DIOXIDE - CO2 28 mmol/L (21-32); CHLORIDE 94 mmol/L (101-111); CREATININE 0.6 mg/dL (0.4-1.0); GFR - MDRD 103 (>89); GLUCOSE 135 mg/dL (70-100); LIPASE 38 U/L (22-51); SALICYLATE < 6.0 mg/dL; SODIUM 136 mmol/L (135-145); TOTAL PROTEIN 7.7 g/dL (6.7-8.2)
--- NOTE | 2019-09-27 15:46 | ED Physician Documentation ---
PD HPI MHE - Stated complaint Stated Complaint: MHE - Chief complaint Chief Complaint: MHE - History obtained from History obtained from: Patient - History of Present Illness Primary symptom: Suicidal ideation, Medical clearance Timing - onset: Today - Additional information Additional information: Is a 58-year-old woman with a history of schizophrenia who we reports that she called the ambulance today to turn herself in before her family did. Apparently she was wandering around and entering people's apartments. She is hearing of voices of babies crying and people telling her to harm herself and she is been having thoughts of harming herself for the past 6 to 7 days. She reports an illness for the past 7 to 8 days that she thought was a flu because she had body aches cough subjective fever she is only been taking Aleve for that denies any cough or cold preparations. She is on Trilafon and Persantine for schizophrenia and Zoloft for antidepressant but she has not been taking those medications because of her recent illness and she just restarted them. She says she has not drink any alcohol for the past 1 to 2 weeks. Says she does occasionally do meth and used some today but it was not much. She reports vomiting today. She reports burning with urination and being "sore all over" in her perineal area. The only pain she has currently is in her right foot around her hammertoe. She lives with her mother. She says she needs to be admitted to [facility] or if not there [facility]. Review of Systems Unable to obtain: Other (Patient is obviously hallucinating) Constitutional: reports: Fever (Subjective), Myalgias Respiratory: reports: Cough. denies: Dyspnea GI: reports: Vomiting : reports: Discharge (She is unsure whether or not she is been having a vagi nal discharge just sore). 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 - Present Medications Home Medications: Ambulatory Orders Medication Instructions Recorded Confirmed Hydroxyzine Pamoate 25 - 50 mg ORAL Q4HR PRN 11/05/14 07/28/17 Albuterol Sulfate [Proventil Hfa 2 puffs IH Q4HR PRN 07/30/15 07/28/17 Inhaler] Gabapentin 900 mg PO TID 07/30/15 07/28/17 Capsaicin 1 applic TOP QID PRN 04/23/16 07/28/17 Dextroamphetamine/Amphetamine 20 mg PO BID 12/06/16 07/28/17 [Adderall 20 mg Tablet] Perphenazine 16 mg PO QPM 12/06/16 07/28/17 clonazePAM [KlonoPIN] 0.5 mg PO QPM tablet 12/07/16 07/28/17 ARIPiprazole [Aripiprazole] 10 mg PO DAILY 07/01/17 07/28/17 Oxycodone HCl 2 tab PO Q8HR PRN 07/01/17 07/28/17 Benztropine [Cogentin] 2 mg PO QPM 07/28/17 07/28/17 - Allergies Allergies/Adverse Reactions: Allergies Allergy/AdvReac Type Severity Reaction Status Date / Time meperidine HCl * Allergy Nausea Verified 09/27/19 14:43 [From Demerol] morphine Allergy Itching Verified 09/27/19 14:43 promethazine HCl * Allergy Hallucinati Verified 09/27/19 14:43 [From Phenergan] ons - Social History Does the pt smoke?: Yes Smoking Status: Current every day smoker Does the pt drink ETOH?: Yes Does the pt have substance abuse?: No - Immunizations Immunizations are current?: Yes - POLST Patient has POLST: No PD ED PE NORMAL - Vitals Vital signs reviewed: Yes - General General: No acute distress, Well developed/nourished, Other (Oriented to place but not time she thinks it is October 26.) - HEENT HEENT: Atraumatic, PERRL, EOMI, Moist mucous membranes, Pharynx benign, Other (She has upper dentures) - Neck Neck: No adenopathy - Cardiac Cardiac: RRR, No murmur, Strong equal pulses - Respiratory Respiratory: No respiratory distress, Clear bilaterally - Abdomen Abdomen: Normal bowel sounds, Soft, Non tender, Non distended, No organomegaly - Female Female : [employer] present, Other (No vaginal discharge or inflammation of the perineum noted.) - Derm Derm: Normal color, Warm and dry, No rash - Extremities Extremities: No deformity, No edema - Neuro Neuro: No motor deficit, No sensory deficit, Normal speech, Other (No gross neurological deficits.) - Psych Psych: Other (Patient was talking to other people in the room while I was interviewing her.) Results - Vitals Vitals: Vital Signs - 24 hr 09/27/19 14:36 Temperature 37 C Heart Rate 116 H Respiratory 20 Rate Blood Pressure 134/84 H O2 Saturation 93 Oxygen O2 Source Room air - EKG (time done) 1743 Rate: Rate (enter#) (104), Tachy Rhythm: Sinus tachycardia Intervals: No: Wide QRS Ischemia: Normal ST segments Compare to prior EKG: Old EKG unavailable - Labs Labs: Laboratory Tests 09/27/19 09/27/19 09/27/19 14:45 15:05 15:05 WBC 10.1 RBC 3.78 L Hgb 12.1 Hct 37.6 MCV 99.5 H MCH 32.0 H MCHC 32.2 RDW 13.1 Plt Count 487 H MPV 8.8 Neut # (Auto) 7.9 H Lymph # (Auto) 1.5 [place] # (Auto) 0.6 Eos # (Auto) 0.1 Baso # (Auto) 0.1 Absolute Nucleated RBC 0.00 Nucleated RBC % 0.0 Sodium 136 Potassium 3.5 Chloride 94 L Carbon Dioxide 28 Anion Gap 14.0 H BUN 5 L Creatinine 0.6 Estimated GFR (MDRD) 103 Glucose 135 H Calcium 9.2 Total Bilirubin 0.5 AST 19 ALT 13 Alkaline Phosphatase 79 Total Protein 7.7 Albumin 3.7 Globulin 4.0 Albumin/Globulin Ratio 0.9 L Lipase 38 TSH Urine Color YELLOW Urine Clarity CLEAR Urine pH 7.0 Ur Specific [place] <=1.005 Urine Protein NEGATIVE Urine Glucose (UA) NEGATIVE Urine Ketones NEGATIVE Urine Occult Blood NEGATIVE Urine Nitrite NEGATIVE Urine Bilirubin NEGATIVE Urine Urobilinogen 0.2 (NORMAL) Ur Leukocyte Esterase NEGATIVE Ur Microscopic Review NOT INDICATED Urine Culture Comments NOT INDICATED Salicylates < 6.0 Urine Opiates Screen NEGATIVE Ur Oxycodone Screen NEGATIVE Urine Methadone Screen NEGATIVE Ur Propoxyphene Screen NEGATIVE Acetaminophen < 10 L Ur Barbiturates Screen NEGATIVE Ur Tricyclics Screen NEGATIVE Ur Phencyclidine Scrn NEGATIVE Ur Amphetamine Screen NEGATIVE U Methamphetamines Scrn NEGATIVE U Benzodiazepines Scrn NEGATIVE Urine Cocaine Screen NEGATIVE U Cannabinoids Screen NEGATIVE Ethyl Alcohol < 5.0 09/27/19 15:05 WBC RBC Hgb Hct MCV MCH MCHC RDW Plt Count MPV Neut # (Auto) Lymph # (Auto) [place] # (Auto) Eos # (Auto) Baso # (Auto) Absolute Nucleated RBC Nucleated RBC % Sodium Potassium Chloride Carbon Dioxide Anion Gap BUN Creatinine Estimated GFR (MDRD) Glucose Calcium Total Bilirubin AST ALT Alkaline Phosphatase Total Protein Albumin Globulin Albumin/Globulin Ratio Lipase TSH 0.46 Urine Color Urine Clarity Urine pH Ur Specific [place] Urine Protein Urine Glucose (UA) Urine Ketones Urine Occult Blood Urine Nitrite Urine Bilirubin Urine Urobilinogen Ur Leukocyte Esterase Ur Microscopic Review Urine Culture Comments Salicylates Urine Opiates Screen Ur Oxycodone Screen Urine Methadone Screen Ur Propoxyphene Screen Acetaminophen Ur Barbiturates Screen Ur Tricyclics Screen Ur Phencyclidine Scrn Ur Amphetamine Screen U Methamphetamines Scrn U Benzodiazepines Scrn Urine Cocaine Screen U Cannabinoids Screen Ethyl Alcohol PD MEDICAL DECISION MAKING - ED course Complexity details: reviewed results, d/w patient ED course: Mental health screening labs were negative. I did order gonorrhea chlamydia on for a urine screening. linen room worker is going to evaluate the patient for possible placement. linen room worker agrees the patient needs placement and we are currently looking for placement. The patient became a little agitated and requested a Xanax and was given a half a milligram but then became increasingly more agitated was yelling and shouting and being disruptive. She was given Zyprexa 5 mg orally. 1837: Care turned over to Dr. Franco at shift change while awaiting placement.
[2019-09-27] MEDS ORDERED: ALPRAZolam 0.25 MG TABLET PO STA (16:28)
[2019-09-27] MEDS ORDERED: OLANZapine ODT 5 MG TABLET TL ONE (16:41)
--- NOTE | 2019-09-27 20:45 | ED Physician Documentation ---
ED Addendum - Addendum Addendum: 09/27/19 20:[address] Daily, briefly this is a 58-year-old woman with psychosis who presents with exacerbation of same. She is cooperative, but sometimes acting out. She was accepted to [facility] by Dr. Viramontes at approximately 2044 and cobras were completed. She is stable for transport for psychiatric treatment. 09/27/19 20:45
[2019-09-27] MEDS ORDERED: diazePAM 5 MG TABLET PO STA (21:05)
[2019-09-27 21:34] LABS: TRICHOMONAS VAGINALIS DNA NEGATIVE (NEGATIVE)
[2019-09-27] MEDS ORDERED: HALOPERIDOL 1 MG TABLET PO STA (22:12)
[2019-09-28 08:19] VITALS: BP 136/87
== END 2019-09-28 08:35 ==
LOC: ED 14:36
DX: F25.9 Schizoaffective disorder, unspecified (principal); F29 Unspecified psychosis not due to a substance or known physiological condition; R30.0 Dysuria; F17.200 Nicotine dependence, unspecified, uncomplicated
CPT/HCPCS: 36415; 80320; 80329; 81003; 83690; 87491; 87591; 87661; 93005; 99284; 99285; A9270; 80053; 80306; 80307; 81001; 84443; 85025; 87086

== ENCOUNTER 2019-10-30 15:09 | Emergency (ER) | payer MEDICARE, MEDICAID ==
--- NOTE | 2019-10-30 15:49 | ED Physician Documentation ---
PD HPI MHE - Stated complaint Stated Complaint: MHE - Chief complaint Chief Complaint: MHE - History obtained from History obtained from: Patient - History of Present Illness Primary symptom: Psychosis, Aggressive behavior, Off meds (The patient is brought in by her 2 sisters. Apparently she was released from long-term today where she had been for 2 days due to aggressive behavior towards her mother. She does have history of substance abuse for amphetamines and also an underlying schizoaffective disorder, probably schizophrenia. She had been hospitalized month or so ago and had had her perphenazine increased and her Haldol stopped. The sister states the patient has been irregular at using her medications and had not had them when she was in long-term the last 2 days. She had been progressively more agitated and easily physical and aggressive. She has been jailed twice in the past week for domestic violence toward her mother. The long-term apparently had not sought psychological evaluation for her. She had not had any of her medicines nor any illicit substances in the last few days because she had been in long-term.) Timing - onset: How many weeks ago (She had been more aggressive and disturbed thought process over the last couple of weeks.) Contributing factors: Substance abuse - drugs, Off meds (Not taking them consistently). No: Substance abuse - ETOH Similar symptoms before: Diagnosis (She has a underlying schizoaffective disorder and substance abuse) Recently seen: Admitted (Reportedly admitted to psychiatric facility about a month or so ago) Review of Systems Constitutional: reports: Fatigue, Weight Loss (the past 1-2 weeks). denies: Fever, Myalgias Nose: denies: Rhinorrhea / runny nose, Congestion Throat: denies: Sore throat Cardiac: denies: Chest pain / pressure Respiratory: denies: Cough GI: denies: Abdominal Pain, Vomiting, Diarrhea : denies: Dysuria Skin: denies: Rash, Lesions Neurologic: reports: Generalized weakness. denies: Focal weakness, Numbness, Headache, Head injury Endocrine: reports: Weight loss (Poor oral intake and nutritional diet over the last few weeks). 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 HOUSE MANAGER: None : None HEENT: Chronic hearing loss Psych: Depression, Anxiety, Bipolar disorder, Schizophrenia, Panic attacks Musculoskeletal: Osteoarthritis, Fibromyalgia Derm: Other - Past Surgical History Past Surgical History: Yes Ortho: Arthroscopic surgery /APARTMENT HOUSE MANAGER: Tubal ligation - Present Medications Home Medications: Ambulatory Orders Medication Instructions Recorded Confirmed Hydroxyzine Pamoate 25 mg ORAL Q4HR PRN 11/05/14 10/30/19 Perphenazine 10 mg PO QPM 12/06/16 10/30/19 Sertraline HCl 25 mg PO DAILY 09/28/19 10/30/19 - Allergies Allergies/Adverse Reactions: Allergies Allergy/AdvReac Type Severity Reaction Status Date / Time meperidine HCl * Allergy Nausea Verified 09/27/19 14:43 [From Demerol] morphine Allergy Itching Verified 09/27/19 14:43 promethazine HCl * Allergy Hallucinati Verified 09/27/19 14:43 [From Phenergan] ons - Social History Does the pt smoke?: Yes Smoking Status: Current every day smoker Does the pt drink ETOH?: Yes Does the pt have substance abuse?: No - Immunizations Immunizations are current?: Yes - POLST Patient has POLST: No PD ED PE NORMAL - Vitals Vital signs reviewed: Yes - General General: Alert and oriented X 3, Well developed/nourished - HEENT HEENT: Moist mucous membranes, Pharynx benign - Neck Neck: Supple, no meningeal sign, No adenopathy - Cardiac Cardiac: RRR (initially tachycardic), No murmur - Respiratory Respiratory: Clear bilaterally - Abdomen Abdomen: Soft, Non tender - Back Back: No CVA TTP - Derm Derm: Normal color, Warm and dry - Neuro Neuro: Alert and oriented X 3, No motor deficit, Normal speech Eye Opening: Spontaneous Motor: Obeys Commands Verbal: Oriented GCS Score: 15 - Psych Psych: No: Normal mood (She is somewhat anxious. She does not feel that she needs help at this time. She is calm and non-agitated at this time.) Results - Vitals Vitals: Oxygen O2 Source Room air - Labs Labs: Laboratory Tests 10/30/19 10/30/19 10/30/19 15:49 15:51 15:51 WBC 12.5 H RBC 3.98 L Hgb 12.8 Hct 40.2 MCV 101.0 H MCH 32.2 H MCHC 31.8 L RDW 13.9 Plt Count 358 MPV 9.4 Neut # (Auto) 10.7 H Lymph # (Auto) 1.2 L [place] # (Auto) 0.5 Eos # (Auto) 0.0 Baso # (Auto) 0.1 Absolute Nucleated RBC 0.00 Nucleated RBC % 0.0 Sodium 140 Potassium 3.1 L Chloride 98 L Carbon Dioxide 29 Anion Gap 13.0 BUN 10 Creatinine 0.8 Estimated GFR (MDRD) 74 L Glucose 150 H Calcium 9.9 Total Bilirubin 0.4 AST 25 ALT 15 Alkaline Phosphatase 64 Total Protein 8.0 Albumin 4.1 Globulin 3.9 Albumin/Globulin Ratio 1.1 Lipase 44 TSH Urine Color YELLOW Urine Clarity CLEAR Urine pH 6.5 Ur Specific [place] <=1.005 Urine Protein NEGATIVE Urine Glucose (UA) NEGATIVE Urine Ketones NEGATIVE Urine Occult Blood NEGATIVE Urine Nitrite NEGATIVE Urine Bilirubin NEGATIVE Urine Urobilinogen 0.2 (NORMAL) Ur Leukocyte Esterase NEGATIVE Ur Microscopic Review NOT INDICATED Urine Culture Comments NOT INDICATED Salicylates < 6.0 Urine Opiates Screen NEGATIVE Ur Oxycodone Screen NEGATIVE Urine Methadone Screen NEGATIVE Ur Propoxyphene Screen NEGATIVE Acetaminophen < 10 L Ur Barbiturates Screen NEGATIVE Ur Tricyclics Screen NEGATIVE Ur Phencyclidine Scrn NEGATIVE Ur Amphetamine Screen NEGATIVE U Methamphetamines Scrn NEGATIVE U Benzodiazepines Scrn NEGATIVE Urine Cocaine Screen NEGATIVE U Cannabinoids Screen NEGATIVE Ethyl Alcohol < 5.0 10/30/19 15:51 WBC RBC Hgb Hct MCV MCH MCHC RDW Plt Count MPV Neut # (Auto) Lymph # (Auto) [place] # (Auto) Eos # (Auto) Baso # (Auto) Absolute Nucleated RBC Nucleated RBC % Sodium Potassium Chloride Carbon Dioxide Anion Gap BUN Creatinine Estimated GFR (MDRD) Glucose Calcium Total Bilirubin AST ALT Alkaline Phosphatase Total Protein Albumin Globulin Albumin/Globulin Ratio Lipase TSH 0.96 Urine Color Urine Clarity Urine pH Ur Specific [place] Urine Protein Urine Glucose (UA) Urine Ketones Urine Occult Blood Urine Nitrite Urine Bilirubin Urine Urobilinogen Ur Leukocyte Esterase Ur Microscopic Review Urine Culture Comments Salicylates Urine Opiates Screen Ur Oxycodone Screen Urine Methadone Screen Ur Propoxyphene Screen Acetaminophen Ur Barbiturates Screen Ur Tricyclics Screen Ur Phencyclidine Scrn Ur Amphetamine Screen U Methamphetamines Scrn U Benzodiazepines Scrn Urine Cocaine Screen U Cannabinoids Screen Ethyl Alcohol PD MEDICAL DECISION MAKING - ED course Complexity details: reviewed old records, reviewed results, considered differential (The patient does have history of schizophrenic psychosis and edwin and is irregularly taking her medicines. She had been more agitated and having aggressive behavior and has been jailed twice in the past week because of that. I feel she does need evaluation for potential rehospitalization.), d/w patient, d/w sap bw consultant (EBONY) Departure - Departure Disposition: 65 Psych Hosp/Unit DC/Xfer Clinical Impression: Aggressive behavior, Noncompliance with medication regimen Schizoaffective disorder Qualifiers: Schizoaffective disorder type: unspecified Qualified Code(s): F25.9 - Schizoaffective disorder, unspecified Condition: Stable Record reviewed to determine appropriate education?: Yes Instructions: ED Schizo Affective Disorder Discharge Date/Time: 10/31/19 10:39
[2019-10-30 15:56] LABS: MUDS CUTOFF CONCENTRATIONS CUTOFF CONC BELOW:
[2019-10-30 15:58] LABS: BILIRUBIN,URINE NEGATIVE (NEGATIVE); GLUCOSE, URINE (UA) NEGATIVE (NEGATIVE); KETONES,URINE (UA) NEGATIVE (NEGATIVE); LEUKOCYTE ESTERASE, URINE NEGATIVE (NEGATIVE); NITRITE,URINE NEGATIVE (NEGATIVE); OCCULT BLOOD,URINE NEGATIVE (NEGATIVE); PH,URINE 6.5 PH (5.0-7.5); PROTEIN,URINE NEGATIVE (NEGATIVE); UROBILINOGEN,URINE 0.2 (NORMAL) E.U./dL (NORMAL)
[2019-10-30 15:59] LABS: CLARITY,URINE CLEAR (CLEAR)
[2019-10-30 16:09] LABS: AMPHETAMINE SCREEN,URINE NEGATIVE (NEGATIVE); BENZODIAZEPINES SCREEN, URINE NEGATIVE (NEGATIVE); COCAINE SCREEN URINE NEGATIVE (NEGATIVE); METHADONE SCREEN, URINE NEGATIVE (NEGATIVE); METHAMPHETAMINES SCREEN, URINE NEGATIVE (NEGATIVE); OPIATE SCREEN, URINE NEGATIVE (NEGATIVE); OXYCODONE SCREEN, URINE NEGATIVE (NEGATIVE); PROPOXYPHENE SCREEN, URINE NEGATIVE (NEGATIVE); TRICYCLIC ANTIDEPRESSANT,URINE NEGATIVE (NEGATIVE)
[2019-10-30 16:09] LABS: BASOPHILS # (AUTO) 0.1 10^3/uL (0.0-0.1); BASOPHILS % (AUTO) 0.5 %; EOSINOPHILS % (AUTO) 0.2 %; HGB - HEMOGLOBIN 12.8 g/dL (12.0-16.0); LYMPHOCYTES # (AUTO) 1.2 10^3/uL (1.5-3.5); LYMPHOCYTES % (AUTO) 9.3 %; MEAN CORPUSCULAR HEMOGLOBIN 32.2 pg (27.0-31.0); MEAN CORPUSCULAR HGB CONC 31.8 g/dL (32.0-36.0); MEAN PLATELET VOLUME 9.4 fL (7.9-10.8); MONOCYTES # (AUTO) 0.5 10^3/uL (0.0-1.0); NEUTROPHILS # (AUTO) 10.7 10^3/uL (1.5-6.6); NEUTROPHILS % (AUTO) 85.4 %; PLT - PLATELET COUNT 358 10^3/uL (130-450); RED BLOOD COUNT 3.98 10^6/uL (4.20-5.40); RED CELL DISTRIBUTION WIDTH 13.9 % (12.0-15.0); WHITE BLOOD COUNT 12.5 x10^3/uL (4.8-10.8)
[2019-10-30 16:25] LABS: ACETAMINOPHEN < 10 ug/mL (10-30); ALBUMIN 4.1 g/dL (3.2-5.5); ALBUMIN/GLOBULIN RATIO 1.1 (1.0-2.2); ALKALINE PHOSPHATASE 64 IU/L (42-121); ALT ALANINE AMINOTRANSFERASE 15 IU/L (10-60); AST ASPARTATE AMINOTRANSFERASE 25 IU/L (10-42); BILIRUBIN,TOTAL 0.4 mg/dL (0.2-1.0); BUN - BLOOD UREA NITROGEN 10 mg/dL (6-20); CALCIUM 9.9 mg/dL (8.5-10.3); CARBON DIOXIDE - CO2 29 mmol/L (21-32); CHLORIDE 98 mmol/L (101-111); CREATININE 0.8 mg/dL (0.4-1.0); GFR - MDRD 74 (>89); GLUCOSE 150 mg/dL (70-100); LIPASE 44 U/L (22-51); SALICYLATE < 6.0 mg/dL; SODIUM 140 mmol/L (135-145)
[2019-10-30] MEDS ORDERED: POTASSIUM CHLORIDE 20 MEQ TABLET PO STA (16:51)
[2019-10-30] MEDS ORDERED: PERPHENAZINE 4 MG TABLET PO STA (18:58)
--- NOTE | 2019-10-30 23:59 | ED Physician Documentation ---
ED Addendum - Addendum Addendum: This is a 59-year-old female with a history of schizoaffective disorder and methamphetamine and alcohol use, who who was released from alf today, and was brought here because she has been more agitated and aggressive. She was tachycardic on arrival but this was thought to be more related to anxiety or agitation. She has been medically cleared, and she has been awaiting DCR evaluation. Plan is to follow-up on DCR evaluation and placement. I reviewed patient's labs, she does have a leukocytosis which is somewhat nonspecific, she was tachycardic and she has had one isolated temperature of 38 C, however on repeat it was normal. I evaluated the patient, she has no cough or shortness of breath or congestion. She denies any pain. She states that she does inject meth but has not done so for over 18 days. She denies any rashes. She denies any chest pain. She has no murmur on exam, no signs of endocarditis, no signs of abscess or or cellulitis. Chest x-ray was obtained which shows no signs of acute disease or pneumonia. Her urine is negative for infection, and repeat vitals without any antipyretics show a normal temperature. DCR evaluated the patient and she is involuntary. Placement was found at [facility] in [facility] Oscar is the accepting provider. Patient was given a dose of Zyprexa. On repeat examination she continues to feel well, she is afebrile, and her heart rate is in normal range. She appears appropriate for psychiatric care and was transferred.
--- NOTE | 2019-10-31 00:27 | XRAY Report ---
Reason: Fever Procedure Date: 10/31/2019 Accession Number: [id number] / [id number] Procedure: XR - Chest 2 View X-Ray CPT Code: 47677 Final Report FULL RESULT: EXAM: CHEST RADIOGRAPHY EXAM DATE: 10/31/2019 12:01 AM. CLINICAL HISTORY: Fever. COMPARISON: CHEST 2 VIEW PA/LAT 12/06/2016 12:15 PM. TECHNIQUE: 2 views. FINDINGS: Lungs/Pleura: The lungs are hyperinflated, compatible with COPD. No focal consolidation, effusion, or pneumothorax. Mediastinum: Heart and mediastinal contours are unremarkable. Other: None. IMPRESSION: Hyperinflation, compatible with COPD. No evidence of acute cardiopulmonary disease. [facility]
[2019-10-31] MEDS ORDERED: OLANZapine ODT 5 MG TABLET TL ONE (02:23)
[2019-10-31 09:06] VITALS: BP 137/86
[2019-10-31] MEDS ORDERED: OLANZapine ODT 5 MG TABLET TL STA (10:21)
== END 2019-10-31 10:39 ==
LOC: ED 15:09
DX: F25.9 Schizoaffective disorder, unspecified (principal); F91.8 Other conduct disorders; F41.9 Anxiety disorder, unspecified; F15.10 Other stimulant abuse, uncomplicated; F17.200 Nicotine dependence, unspecified, uncomplicated; Z91.14 Patient's other noncompliance with medication regimen
CPT/HCPCS: 36415; 71046; 80053; 81003; 83690; 84443; 85025; 99284; 99285; A9270; 80306; 80307; 80320; 80329; 81001; 87086